=== PATIENT | male | born 1945 | race Caucasian/White ===

== ENCOUNTER 2018-03-15 08:00 | Outpatient (CLI) | payer MEDICARE, OTHER ==
[2018-03-15 12:23] LABS: BASOPHILS % (AUTO) 0.5 %; EOSINOPHILS # (AUTO) 0.1 10^3/uL (0.0-0.7); EOSINOPHILS % (AUTO) 1.7 %; HGB - HEMOGLOBIN 15.5 g/dL (14.0-18.0); LYMPHOCYTES # (AUTO) 1.3 10^3/uL (1.5-3.5); LYMPHOCYTES % (AUTO) 24.7 %; MEAN CORPUSCULAR HEMOGLOBIN 31.3 pg (27.0-31.0); MEAN CORPUSCULAR HGB CONC 34.4 g/dL (32.0-36.0); MEAN CORPUSCULAR VOLUME 91.1 fL (80.0-94.0); MEAN PLATELET VOLUME 7.5 fL (7.4-11.4); MONOCYTES # (AUTO) 0.5 10^3/uL (0.0-1.0); MONOCYTES % (AUTO) 9.1 %; NEUTROPHILS # (AUTO) 3.4 10^3/uL (1.5-6.6); PLT - PLATELET COUNT 240 10^3/uL (130-450); RED BLOOD COUNT 4.94 10^6/uL (4.70-6.10); RED CELL DISTRIBUTION WIDTH 13.1 % (12.0-15.0); WHITE BLOOD COUNT 5.4 x10^3/uL (4.8-10.8)
[2018-03-15 12:27] LABS: PT - PROTHROMBIN TIME 11.2 secs (9.9-12.6)
[2018-03-15 12:40] LABS: ALBUMIN 4.1 g/dL (3.2-5.5); ALBUMIN/GLOBULIN RATIO 1.4 (1.0-2.2); BILIRUBIN,TOTAL 0.7 mg/dL (0.2-1.0); CALCIUM 9.8 mg/dL (8.5-10.3); TOTAL PROTEIN 7.1 g/dL (6.7-8.2)
== END 2018-03-15 08:01 | disposition home or self-care (01) ==
LOC: LAB.WCP 08:00
PROVIDERS: ATTEND Family Medicine
DX: Z02.81 Encounter for paternity testing (principal); I10 Essential (primary) hypertension; E78.5 Hyperlipidemia, unspecified
CPT/HCPCS: 36415; 80053; 85025; 85610

== ENCOUNTER 2018-03-15 13:25 | Outpatient (CLI) | payer MEDICARE, OTHER | END 2018-03-15 13:26 | disposition home or self-care (01) | LOC: DI 13:25 | PROVIDERS: ATTEND Family Medicine | DX: I44.7 Left bundle-branch block, unspecified (principal); I10 Essential (primary) hypertension; E78.5 Hyperlipidemia, unspecified; Z02.81 Encounter for paternity testing | CPT/HCPCS: 36415; 80053; 85025; 85610; 93306 ==

== ENCOUNTER 2019-01-17 08:00 | Outpatient (CLI) | payer MEDICARE, OTHER ==
[2019-01-17 12:14] LABS: BASOPHILS % (AUTO) 0.4 %; EOSINOPHILS # (AUTO) 0.1 10^3/uL (0.0-0.7); HGB - HEMOGLOBIN 16.2 g/dL (14.0-18.0); LYMPHOCYTES # (AUTO) 1.5 10^3/uL (1.5-3.5); LYMPHOCYTES % (AUTO) 28.9 %; MEAN CORPUSCULAR HEMOGLOBIN 31.6 pg (27.0-31.0); MEAN CORPUSCULAR HGB CONC 33.4 g/dL (32.0-36.0); MEAN CORPUSCULAR VOLUME 94.7 fL (80.0-94.0); MEAN PLATELET VOLUME 9.4 fL (7.4-11.4); MONOCYTES # (AUTO) 0.6 10^3/uL (0.0-1.0); NEUTROPHILS # (AUTO) 2.9 10^3/uL (1.5-6.6); NEUTROPHILS % (AUTO) 57.5 %; PLT - PLATELET COUNT 229 10^3/uL (130-450); RED BLOOD COUNT 5.12 10^6/uL (4.70-6.10); RED CELL DISTRIBUTION WIDTH 11.8 % (12.0-15.0)
[2019-01-17 12:54] LABS: ALBUMIN 4.1 g/dL (3.2-5.5); ALBUMIN/GLOBULIN RATIO 1.3 (1.0-2.2); ALKALINE PHOSPHATASE 51 IU/L (42-121); ALT ALANINE AMINOTRANSFERASE 20 IU/L (10-60); AST ASPARTATE AMINOTRANSFERASE 23 IU/L (10-42); BILIRUBIN,TOTAL 0.6 mg/dL (0.2-1.0); BUN - BLOOD UREA NITROGEN 21 mg/dL (6-20); CALCIUM 10.2 mg/dL (8.5-10.3); CARBON DIOXIDE - CO2 26 mmol/L (21-32); CHLORIDE 101 mmol/L (101-111); CHOL/HDL RATIO 3.5 (<5.0); CHOLESTEROL 194 mg/dL; CREATININE 1.2 mg/dL (0.6-1.2); GFR - MDRD 60 (>89); GLUCOSE 112 mg/dL (70-100); HDL CHOLESTEROL 55 mg/dL; LDL CHOLESTEROL,CALCULATED 116 mg/dL; LDL/HDL RATIO 2.1 (<3.6); SODIUM 137 mmol/L (135-145); TOTAL PROTEIN 7.3 g/dL (6.7-8.2); VLDL CHOLESTEROL 23 mg/dL
[2019-01-18 11:43] LABS: HEPATITIS C ANTIBODY NON-REACTIVE (NON-REACTIVE)
== END 2019-01-17 23:59 | disposition home or self-care (01) ==
LOC: LAB.WCP 08:00
PROVIDERS: ATTEND Family Medicine
DX: I10 Essential (primary) hypertension (principal); E78.5 Hyperlipidemia, unspecified; Z12.5 Encounter for screening for malignant neoplasm of prostate; Z23 Encounter for immunization; Z11.59 Encounter for screening for other viral diseases
CPT/HCPCS: 36415; 80053; 80061; 85025; 86765; 86803; G0103; 83721; 84153

== ENCOUNTER 2020-03-19 19:42 | Outpatient (CLI) | payer MEDICARE, OTHER | END 2020-03-19 19:43 | disposition home or self-care (01) | LOC: COV 19:42 | PROVIDERS: ATTEND Family Medicine | DX: U07.1 COVID-19 (principal) ==

== ENCOUNTER 2020-06-05 14:09 | Outpatient (CLI) | payer MEDICARE, OTHER ==
--- NOTE | 2020-06-05 16:59 | XRAY Report ---
PROCEDURE: Hip 1 View RT INDICATIONS: RIGHT HIP PAIN TECHNIQUE: AP view of the pelvis and lateral views of the hip were acquired. COMPARISON: None FINDINGS: Bones: There are postoperative changes of total left hip replacement. The right hip demonstrates join t space narrowing and subchondral sclerosis consistent with degenerative changes. Soft tissues: No suspicious soft tissue calcifications or masses. IMPRESSION: 1. Degenerative changes of the right hip consistent with osteoarthritis. 2. Status post total left hip replacement with no radiographic complication. Reviewed by: Gabe Quezada on 06/05/2020 4:58 PM PST Approved by: Gabe Quezada on 06/05/2020 4:58 PM PST Station ID: [id number]
--- NOTE | 2020-06-05 17:03 | XRAY Report ---
PROCEDURE: Lumbar Spine 2 View INDICATIONS: LOW BACK PAIN CHRONIC TECHNIQUE: 2 views of the lumbar spine were acquired. COMPARISON: None. FINDINGS: Bones: The lumbar spine demonstrates dextroscoliosis. Intervertebral disc space narrowing on the left at L2-3 and L3-4. Status post total left hip replacement. No vertebral body height loss. There i s facet arthrosis at L3-4, L4-5, and L5-S1. Soft tissues: Overlying bowel gas pattern is normal. No suspicious soft tissue calcifications. IMPRESSION: 1. Degenerative changes of the lumbar spine with dextroscoliosis 2. Multilevel degenerative disc disease. Reviewed by: Gabe Quezada on 06/05/2020 5:02 PM PST Approved by: Gabe Quezada on 06/05/2020 5:02 PM PST Station ID: [id number]
== END 2020-06-05 14:10 | disposition home or self-care (01) ==
LOC: DI.WCP 14:09
PROVIDERS: ATTEND Physician Assistant
DX: M51.36 Other intervertebral disc degeneration, lumbar region (principal); M41.86 Other forms of scoliosis, lumbar region; M16.11 Unilateral primary osteoarthritis, right hip; Z96.642 Presence of left artificial hip joint

== ENCOUNTER 2020-10-22 08:00 | Outpatient (CLI) | payer MEDICARE, OTHER ==
[2020-10-22 11:57] LABS: BASOPHILS % (AUTO) 0.4 %; EOSINOPHILS # (AUTO) 0.2 10^3/uL (0.0-0.7); EOSINOPHILS % (AUTO) 2.3 %; HCT - HEMATOCRIT 48.9 % (42.0-52.0); HGB - HEMOGLOBIN 15.8 g/dL (14.0-18.0); LYMPHOCYTES # (AUTO) 1.4 10^3/uL (1.5-3.5); LYMPHOCYTES % (AUTO) 19.7 %; MEAN CORPUSCULAR HEMOGLOBIN 30.5 pg (27.0-31.0); MEAN CORPUSCULAR HGB CONC 32.3 g/dL (32.0-36.0); MEAN CORPUSCULAR VOLUME 94.4 fL (80.0-94.0); MEAN PLATELET VOLUME 9.2 fL (7.4-11.4); MONOCYTES # (AUTO) 0.6 10^3/uL (0.0-1.0); MONOCYTES % (AUTO) 9.3 %; NEUTROPHILS # (AUTO) 4.7 10^3/uL (1.5-6.6); PLT - PLATELET COUNT 233 10^3/uL (130-450); RED BLOOD COUNT 5.18 10^6/uL (4.70-6.10); RED CELL DISTRIBUTION WIDTH 11.9 % (12.0-15.0); WHITE BLOOD COUNT 6.9 x10^3/uL (4.8-10.8)
[2020-10-22 12:40] LABS: THYROID STIMULATING HORMONE 3.21 uIU/mL (0.34-5.60)
[2020-10-22 12:42] LABS: ALBUMIN 4.3 g/dL (3.2-5.5); ALBUMIN/GLOBULIN RATIO 1.4 (1.0-2.2); ALKALINE PHOSPHATASE 40 IU/L (42-121); ALT ALANINE AMINOTRANSFERASE 19 IU/L (10-60); AST ASPARTATE AMINOTRANSFERASE 20 IU/L (10-42); BILIRUBIN,TOTAL 0.7 mg/dL (0.2-1.0); BUN - BLOOD UREA NITROGEN 36 mg/dL (6-20); CALCIUM 9.9 mg/dL (8.5-10.3); CARBON DIOXIDE - CO2 28 mmol/L (21-32); CHLORIDE 102 mmol/L (101-111); CHOL/HDL RATIO 3.2 (<5.0); CHOLESTEROL 183 mg/dL; CREATININE 1.2 mg/dL (0.6-1.2); GFR - MDRD 59 (>89); GLUCOSE 119 mg/dL (70-100); HDL CHOLESTEROL 58 mg/dL; LDL CHOLESTEROL,CALCULATED 103 mg/dL; LDL/HDL RATIO 1.8 (<3.6); POTASSIUM 4.5 mmol/L (3.5-5.0); SODIUM 135 mmol/L (135-145); TOTAL PROTEIN 7.3 g/dL (6.7-8.2); TRIGLYCERIDES 112 mg/dL; VLDL CHOLESTEROL 22 mg/dL
== END 2020-10-22 23:59 | disposition home or self-care (01) ==
LOC: LAB.WCP 08:00
PROVIDERS: ATTEND Family Medicine
DX: I10 Essential (primary) hypertension (principal); E03.9 Hypothyroidism, unspecified; E78.5 Hyperlipidemia, unspecified
CPT/HCPCS: 36415; 80053; 80061; 83721; 84443; 85025

== ENCOUNTER 2020-11-05 09:36 | Emergency (ER) | payer MEDICARE, OTHER ==
[2020-11-05 09:54] VITALS: BP 189/99
[2020-11-05] MEDS ORDERED: TETANUS/DIPHTHERIA/PERTUSSIS 0.5 ML SYRINGE IM ONE (10:16)
--- NOTE | 2020-11-05 10:49 | XRAY Report ---
PROCEDURE: Hand 3 View RT INDICATIONS: fall, R hand pain TECHNIQUE: 3 views of the hand(s) acquired. COMPARISON: None FINDINGS: Bones: No fractures or dislocations. No suspicious bony lesions. Joint space narrowing and subchon dral sclerosis is noted involving the interphalangeal joints. Small erosions noted involving the dist al second through fourth distal interphalangeal joints with radial deviation of the fifth and ulnar d eviation of the third distal phalanx joint space narrowing and subchondral sclerosis noted involving the first carpal metacarpal joint as well. Soft tissues: No suspicious soft tissue calcifications. Dorsal soft tissue swelling noted IMPRESSION: Soft tissue swelling without fracture or foreign body Arthritic changes primarily involving the DIP and first CMC joints Reviewed by: Marcos Banegas MD on 11/05/2020 9:48 AM [place] Approved by: Marcos Banegas MD on 11/05/2020 9:48 AM [place] Station ID: [id number]
--- NOTE | 2020-11-05 10:51 | ED Physician Documentation ---
PD HPI UPPER EXT INJURY - Stated complaint Stated Complaint: RT HAND PX - Chief complaint Chief Complaint: Trauma Ext - History obtained from History obtained from: Patient - History of Present Illness Location: Right, Hand Type of injury: Fall Where injury occurred: Home Timing - onset: Yesterday Timing - duration: Days (1) Timing - details: Gradual onset Pain level max: 5 Pain level now: 4 Improved by: Rest, Ice, Immobilization Worsened by: Moving, Palpating Associated symptoms: Swelling, Discolored (bruising). No: Weakness, Numbness, Tingling Contributing factors: No: Anticoagulated Recently seen: Not recently seen - Additonal information Additional information: patient is left handed Review of Systems Constitutional: denies: Fever, Chills GI: denies: Vomiting, Diarrhea Skin: denies: Rash Musculoskeletal: denies: Neck pain, Back pain Neurologic: denies: Headache PD PAST MEDICAL HISTORY - Past Medical History Past Medical History: Yes Cardiovascular: Hypertension, High cholesterol Endocrine/Autoimmune: HyPOthyroidism - Present Medications Home Medications: Ambulatory Orders Medication Instructions Recorded Confirmed Lisinopril/Hydrochlorothiazide 1 tab PO DAILY 11/05/20 11/05/20 [Zestoretic 20-25 mg Tablet] Simvastatin [Zocor] 20 mg PO DAILY 11/05/20 11/05/20 - Allergies Allergies/Adverse Reactions: Allergies Allergy/AdvReac Type Severity Reaction Status Date / Time No Known Drug Allergies Allergy Verified 11/05/20 09:46 - Social History Does the pt smoke?: No Smoking Status: Never smoker PD ED PE NORMAL - Vitals Vital signs reviewed: Yes - General General: Alert and oriented X 3, No acute distress - Derm Derm: Warm and dry - Extremities Extremities: Other (TTP R hand - 5th MCP joint and diffusely along the 5th digit. NVI. limited ROM 2/2 pain) - Neuro Neuro: Alert and oriented X 3 Results - Vitals Vitals: Vital Signs - 24 hr 11/05/20 09:40 Temperature 37.0 C Heart Rate 92 Respiratory 18 Rate Blood Pressure 189/99 H O2 Saturation 100 Oxygen O2 Source Room air - Rads (name of study) R hand xray Radiology: Prelim report reviewed, EMP read contemporaneously, See rad report (Soft tissue swelling without fracture or foreign body Arthritic changes primarily involving the DIP and first CMC joints Soft tissue swelling without fracture or foreign body Arthritic changes primarily involving the DIP and first CMC joints ) PD MEDICAL DECISION MAKING - ED course Complexity details: reviewed results, re-evaluated patient, considered differential, d/w patient ED course: 75-year-old male with what appears to be a right fifth digit sprain. Placed in a foam finger splint for comfort. No acute findings on x-ray. Neurovascular intact. Did have a small abrasion on the hand, unknown last tetanus. Tdap given. Patient counseled regarding signs and symptoms for which I believe and urgent re-evaluation would be necessary. Patient with good understanding of and agreement to plan and is comfortable going home at this time This document was made in part using voice recognition software. While efforts are made to proofread this document, sound alike and grammatical errors may occur. Departure - Departure Disposition: 01 Home, Self Care Clinical Impression: Sprain, finger Qualifiers: Encounter type: initial encounter Finger: little finger Sprain of finger site: unspecified site Laterality: right Qualified Code(s): S63.616A - Unspecified sprain of right little finger, initial encounter Condition: Good Instructions: ED Sprain Finger Follow-Up: Carole Li DO [Primary Care Provider] - As Needed Comments: If you are still having symptoms in 1 to 2 weeks, you should follow-up with your doctor for repeat evaluation. There are no fractures visible on your x-ray today. Use the splint as needed for comfort. Return if you worsen
== END 2020-11-05 11:04 | disposition home or self-care (01) ==
LOC: ED 09:36
DX: S63.616A Unspecified sprain of right little finger, initial encounter (principal); S60.416A Abrasion of right little finger, initial encounter; W01.0XXA Fall on same level from slipping, tripping and stumbling without subsequent striking against object, initial encounter; Y93.01 Activity, walking, marching and hiking; Y92.007 Garden or yard of unspecified non-institutional (private) residence as the place of occurrence of the external cause; Z23 Encounter for immunization; M19.041 Primary osteoarthritis, right hand; I10 Essential (primary) hypertension
CPT/HCPCS: 90471; 99282; 99283

== ENCOUNTER 2022-12-25 09:01 | Outpatient (CLI) | payer MEDICARE, OTHER ==
[2022-12-25 09:17] LABS: BASOPHILS % (AUTO) 0.4 %; EOSINOPHILS # (AUTO) 0.2 10^3/uL (0.0-0.7); EOSINOPHILS % (AUTO) 3.1 %; HCT - HEMATOCRIT 46.4 % (42.0-52.0); HGB - HEMOGLOBIN 15.3 g/dL (14.0-18.0); LYMPHOCYTES # (AUTO) 1.3 10^3/uL (1.5-3.5); LYMPHOCYTES % (AUTO) 26.8 %; MEAN CORPUSCULAR HEMOGLOBIN 30.6 pg (27.0-31.0); MEAN CORPUSCULAR VOLUME 92.8 fL (80.0-94.0); MEAN PLATELET VOLUME 8.6 fL (7.4-11.4); MONOCYTES # (AUTO) 0.6 10^3/uL (0.0-1.0); MONOCYTES % (AUTO) 12.1 %; NEUTROPHILS # (AUTO) 2.7 10^3/uL (1.5-6.6); NEUTROPHILS % (AUTO) 57.2 %; PLT - PLATELET COUNT 214 10^3/uL (130-450); RED CELL DISTRIBUTION WIDTH 12.2 % (12.0-15.0); WHITE BLOOD COUNT 4.8 x10^3/uL (4.8-10.8)
[2022-12-25 09:38] LABS: ALBUMIN 4.3 g/dL (3.2-5.5); ALBUMIN/GLOBULIN RATIO 1.6 (1.0-2.2); ALKALINE PHOSPHATASE 57 IU/L (42-121); ALT ALANINE AMINOTRANSFERASE 17 IU/L (10-60); AST ASPARTATE AMINOTRANSFERASE 18 IU/L (10-42); BILIRUBIN,TOTAL 0.6 mg/dL (0.2-1.0); BUN - BLOOD UREA NITROGEN 26 mg/dL (6-20); CALCIUM 10.4 mg/dL (8.5-10.3); CARBON DIOXIDE - CO2 30 mmol/L (21-32); CHLORIDE 101 mmol/L (101-111); CHOL/HDL RATIO 3.5 (<5.0); CHOLESTEROL 188 mg/dL; CREATININE 1.1 mg/dL (0.6-1.3); GFR - MDRD 65 (>89); GLUCOSE 108 mg/dL (74-104); HDL CHOLESTEROL 54 mg/dL; LDL CHOLESTEROL,CALCULATED 112 mg/dL; LDL/HDL RATIO 2.1 (<3.6); POTASSIUM 4.3 mmol/L (3.5-4.5); SODIUM 135 mmol/L (135-145); TRIGLYCERIDES 109 mg/dL (48-352); VLDL CHOLESTEROL 22 mg/dL
[2022-12-25 09:48] LABS: THYROID STIMULATING HORMONE 3.87 uIU/mL (0.34-5.60)
== END 2022-12-25 09:02 | disposition home or self-care (01) ==
LOC: LAB 09:01
PROVIDERS: ATTEND Nurse Practitioner Family
DX: I10 Essential (primary) hypertension (principal); E03.9 Hypothyroidism, unspecified; E78.5 Hyperlipidemia, unspecified
CPT/HCPCS: 36415; 80053; 80061; 83721; 84443; 85025

== ENCOUNTER 2023-02-14 07:35 | Outpatient (CLI) | payer MEDICARE, OTHER ==
--- NOTE | 2023-02-14 10:06 | Ultrasound Report ---
PROCEDURE: Head or Neck Soft Tissue INDICATIONS: TUMOR OF RIGHT POSTAURICULAR REGION TECHNIQUE: Real-time scanning was performed of the area of clinical concern posterior to the right ear, with yair ge documentation. Color Doppler ultrasound was also utilized. FINDINGS: At the site of clinical concern, there is a nonvascular hypoechoic superficial focus that m easures 2.6 x 0.4 x 1.1 cm. IMPRESSION: 2.6 cm superficial hypoechoic nonvascular focus seen at the site of clinical concern. Further evaluat ion is recommended, beginning either with a dedicated CT of the neck with IV contrast for an ultrasou nd-guided percutaneous biopsy. Reviewed by: Davi Pineda MD on 02/14/2023 9:04 AM [facility] Approved by: Davi Pineda MD on 02/14/2023 9:04 AM [place] Station ID: [id number]
== END 2023-02-14 07:36 | disposition home or self-care (01) ==
LOC: DI 07:35
PROVIDERS: ATTEND Physician Assistant
DX: D49.2 Neoplasm of unspecified behavior of bone, soft tissue, and skin (principal)

== ENCOUNTER 2023-04-01 09:25 | Outpatient (CLI) | payer MEDICARE, OTHER ==
[2023-04-01] MEDS ORDERED: LIDOCAINE-MPF 1% 5 ML VIAL ONE (09:59)
[2023-04-01] MEDS ORDERED: LIDOCAINE-MPF 1% 5 ML VIAL TD ONE (11:52)
--- NOTE | 2023-04-01 15:51 | Ultrasound Report ---
PROCEDURE: Ultrasound-guided right retroauricular biopsy with local analgesia. INDICATIONS: MASS BY RIGHT EAR Comparison: Ultrasound dated 02/14/2023 TECHNIQUE: The indications, alternatives, benefits, risks, and complications of the procedure were e xplained to the patient. Written informed consent was obtained and placed in the chart. Real-time sonography was utilized to choose the site for percutaneous right retroauricular biopsy. T he skin was prepped and draped in the usual sterile fashion. 1% lidocaine was infiltrated down to th e site of interest. A coaxial needle was then advanced into the site of interest under direct sonogr aphic visualization. A biopsy apparatus was then utilized, and core biopsies were obtained. The nee dle was then withdrawn; a bandage was applied to the biopsy site. COMPARISON: FINDINGS: Biopsy site(s): Right retroauricular region. Needle: [email or web address] biopsy needle set. 20-gauge Number of passes: 5 Medications: 1% lidocaine for local anaesthesia. Complications: None. IMPRESSION: Successful ultrasound-guided right retroauricular soft tissue mass biopsy, with patholog y results pending. Reviewed by: Wu Gilman MD on 04/01/2023 3:49 PM PDT Approved by: Wu Gilman MD on 04/01/2023 3:49 PM PDT Station ID: [id number]
== END 2023-04-01 09:26 | disposition home or self-care (01) ==
LOC: DI 09:25
PROVIDERS: ATTEND Physician Assistant
DX: D36.7 Benign neoplasm of other specified sites (principal)
CPT/HCPCS: 20206

== ENCOUNTER 2024-01-25 10:47 | Outpatient (CLI) | payer MEDICARE, OTHER ==
[2024-01-25 11:03] LABS: BASOPHILS % (AUTO) 0.6 %; EOSINOPHILS # (AUTO) 0.1 10^3/uL (0.0-0.7); EOSINOPHILS % (AUTO) 2.2 %; HGB - HEMOGLOBIN 15.8 g/dL (14.0-18.0); LYMPHOCYTES # (AUTO) 1.6 10^3/uL (1.5-3.5); MEAN CORPUSCULAR HGB CONC 33.6 g/dL (32.0-36.0); MEAN CORPUSCULAR VOLUME 92.2 fL (80.0-94.0); MEAN PLATELET VOLUME 8.9 fL (7.4-11.4); MONOCYTES # (AUTO) 0.5 10^3/uL (0.0-1.0); MONOCYTES % (AUTO) 10.5 %; NEUTROPHILS # (AUTO) 2.7 10^3/uL (1.5-6.6); NEUTROPHILS % (AUTO) 53.7 %; PLT - PLATELET COUNT 207 10^3/uL (130-450); RED CELL DISTRIBUTION WIDTH 11.9 % (12.0-15.0)
[2024-01-25 11:22] LABS: ALBUMIN/GLOBULIN RATIO 1.4 (1.0-2.2); ALKALINE PHOSPHATASE 52 IU/L (42-121); ALT ALANINE AMINOTRANSFERASE 16 IU/L (10-60); AST ASPARTATE AMINOTRANSFERASE 18 IU/L (10-42); BILIRUBIN,TOTAL 0.7 mg/dL (0.2-1.0); BUN - BLOOD UREA NITROGEN 28 mg/dL (6-20); CALCIUM 9.8 mg/dL (8.5-10.3); CARBON DIOXIDE - CO2 29 mmol/L (21-32); CHLORIDE 102 mmol/L (101-111); CHOL/HDL RATIO 2.6 (<5.0); CHOLESTEROL 169 mg/dL; CREATININE 0.9 mg/dL (0.6-1.3); GFR - MDRD 82 (>89); GLUCOSE 108 mg/dL (74-104); HDL CHOLESTEROL 64 mg/dL; LDL CHOLESTEROL,CALCULATED 85 mg/dL; LDL/HDL RATIO 1.3 (<3.6); POTASSIUM 4.2 mmol/L (3.5-4.5); SODIUM 137 mmol/L (135-145); TOTAL PROTEIN 6.8 g/dL (6.4-8.9); TRIGLYCERIDES 98 mg/dL; VLDL CHOLESTEROL 20 mg/dL
[2024-01-25 11:33] LABS: THYROID STIMULATING HORMONE 3.09 uIU/mL (0.34-5.60)
== END 2024-01-25 10:48 | disposition home or self-care (01) ==
LOC: LAB 10:47
PROVIDERS: ATTEND Nurse Practitioner Family
DX: I10 Essential (primary) hypertension (principal); E78.5 Hyperlipidemia, unspecified
CPT/HCPCS: 36415; 80053; 80061; 83721; 84443; 85025